=== PATIENT | female | born 1965 | race Caucasian/White ===

== ENCOUNTER 2016-11-24 16:59 | Inpatient (IN) | payer MEDICARE, OTHER ==
[~2016-11-24] VITALS: Ht 152.4 cm; Wt 59.9 kg
[~2016-11-24 16:59] MED LIST: AMOXICILLIN500 MG PO; FLEXERIL PO; NAPROSYN500 MG PO; ULTRAM50 MG PO
--- NOTE | 2016-11-24 17:11 | NUR ---
PT TO ROOM FOR TREATMENT VIA EMS
[2016-11-24] MEDS ORDERED: BENZTROPINE0.5 MG PO (17:43)
[2016-11-24] MEDS ORDERED: HALOPERIDOL5 MG PO (17:43)
[2016-11-24] MEDS ORDERED: THORAZINE50 MG PO (17:45)
--- NOTE | 2016-11-24 17:46 | NUR ---
PT FAMILY STATES SHE JUST GOT [facility], AND WAS STARTEDF ON MEDICATIONS. THINKS SHE MAY HAVE TAKEN MORE OF MEDS THAN SHE SHOULD HAVE. IFAMILY STATES NOTED SHE WASNT GETTING OUT OF BED AND MOVING AROUND SLOWLY YESTERDAY AND TODAY, FAMILY COULD NOT AROUSE HER TO WAKE UP FOSTER EAT, SHE CONTINUES TO SNORE AT THIS TIME. SLEEPING HEAVILY, VITAL SIGNS STABLE.
[2016-11-24 18:22] LABS: HEMATOCRIT 30.5 % (37.0-47.0); HEMOGLOBIN 10.2 g/dl (12.0-16.0); IMMATURE GRANULOCYTES 0.3 % (0.0-1.0); MEAN CELL VOLUME 98.7 fL CALC (80.0-100.0); MEAN CORPUSCULAR HGB CONC 33.4 g/L CALC (32.0-36.0); NEUT# 2.15 thou/uL (2.00-7.15); RED BLOOD COUNT 3.09 mill/uL (4.20-5.60); RED CELL DISTRI WIDTH 18.9 % (11.5-15.5)
[2016-11-24 18:30] LABS: ALBUMIN 2.8 g/dL (3.2-5.0); ALKALINE PHOSPHATASE 161 u/l (38-126); ANION GAP 13 (6-22 (CALC)); BILIRUBIN, TOTAL 2.2 mg/dL (0.0-1.4); BUN 14 mg/dL (7-17); BUN/CREATININE RATIO 26 (12-20 (CALC)); CALCIUM 8.2 mg/dL (8.4-10.2); CARBON DIOXIDE 21 mmol/l (22-30); CHLORIDE 113 mmol/l (95-108); CREATININE 0.5 mg/dL (0.5-1.0); ETHYL ALCOHOL 0 mg/dl (0-30); GFR > 60 ML/MIN (>=60 (CALC)); GFR FOR AFR.AMER. > 60 ML/MIN (>=60 (CALC)); GLUCOSE 98 mg/dL (65-105); POTASSIUM 4.5 mmol/l (3.5-5.1); SGOT/AST 139 u/l (14-36); SGPT/ALT 103 u/l (9-52); SODIUM 143 mmol/l (137-146); TOTAL PROTEIN 8.3 g/dL (6.3-8.2)
[2016-11-24 18:42] LABS: MYOGLOBIN 224 ng/mL (0 - 62)
--- NOTE | 2016-11-24 21:04 | NUR ---
PT NOW WITH IVF RUNNING, SEEN AROUSABLE TO SPEECH BUT IS SOMEWHAT GARBLED IN HER SPEECH. PT HAS BEEN TRANSPORTED AT THIS TIME TO [facility] FOR CT HEAD.
--- NOTE | 2016-11-24 22:12 | NUR ---
RECEIVED REPORT FROM QUYEN PISANO. PT STILL AT [facility] FOR CT
--- NOTE | 2016-11-24 23:00 | NUR ---
PT BACK FROM [facility] WITH NEGATIVE CT BRAIN. PT TO BE ADMITTED PER DR STEPHENS
[2016-11-24 23:32] LABS: URINE BILIRUBIN - DIPSTICK NEGATIVE (NEGATIVE); URINE BLOOD DIPSTICK SMALL (NEGATIVE); URINE CLARITY CLEAR; URINE COLOR YELLOW; URINE GLUCOSE - DIPSTICK NEGATIVE (NEGATIVE); URINE KETONE 15 mg/dL (NEGATIVE); URINE LEUK ESTERASE NEGATIVE (NEGATIVE); URINE NITRITE - DIPSTICK NEGATIVE (Negative); URINE PH 6.5 (4.5-8.0); URINE PROTEIN - DIPSTICK NEGATIVE (NEG-TRACE); URINE SPECIFIC GRAVITY 1.025
[2016-11-24 23:37] LABS: BARBITURATES NEGATIVE (NEGATIVE); COCAINE NEGATIVE (NEGATIVE); METHADONE NEGATIVE (NEGATIVE); TETRAHYDROCANNABIONOL POSITIVE (NEGATIVE); TRICYLIC ANTIDEPRESSANTS NEGATIVE (NEGATIVE)
[2016-11-24 23:38] LABS: OXCYCODONE NEGATIVE (NEGATIVE)
[2016-11-24 23:45] LABS: URINE BACTERIA RARE hpf; URINE SQUAMOUS EPITHELIAL CELL FEW EPI/hpf (0-FEW)
--- NOTE | 2016-11-25 00:09 | NUR ---
REPORT GIVEN TO CHAIM MADISON.
--- NOTE | 2016-11-25 00:30 | NUR ---
Admission Note Report Given to: CHAIM MADISON Transported by: Wheelchair X Stretcher Transported with: X Nurse Transporter X Patent IV O2 X Professor Of Medicine
[2016-11-25 00:40] VITALS: BP 149/91
--- NOTE | 2016-11-25 00:40 | NUR ---
PT TRANSFERED TO FLOOR IN STABLE CONDITION VIA STRETCHER ACCOMPANIED BY QUYEN BARAKAT;PT AMBULATED TO BED WITH UNSTEADY GAIT;PT BECAME AGITATED WITH SEVERAL NURSES IN THE ROOM;PT ORIENTED TO ROOM AND CALL LIGHT SYSTEM AND SAFETY PRECAUTIONS BUT UNABLE TO VERBALIZE UNDERSTANDING;SPEECH IS VERY GARBLED;IV FLUIDS INFUSING TO EMS SITE IN LAC WELL;TELE MONITOR IN PLACE;RESPIRATIONS EVEN AND UNLABORED ON RA;ASSESSMENT COMPLETED;SKIN INTACT;PUPILS PIN POINT;SLIGHT TREMORS OF THE EXTREMITIES NOTED;PT UNABLE TO SIT STILL;CONTACT PRECAUTIONS PUT INTO PLACE DUE TO SUSPECTED PINK EYE TREATED BY ER MD;BS OF 130 OBTAINED; BED ALARM ON;FALL PRECAUTIONS IN PLACE;BED IN LOWEST POSITION WITH CALL LIGHT WITHIN REACH;WILL CONTINUE TO MONITOR
--- NOTE | 2016-11-25 00:46 | NUR ---
INITIAL TELE READING OF SR 95
--- NOTE | 2016-11-25 01:20 | NUR ---
PT CONSTANTLY GETTING OUT OF BED;PT VERY RESTLESS;PT EDUCATED ON FALL PRECAUTIONS BUT NOT UNDERSTANDING;PT SETTLED BACK INTO BED;WRITTER CURRENTLY SITTING AT BEDSIDE;BED ALARM ON WITH CONTACT PRECAUTIONS IN PLACE;WILL CONTINUE TO MONITOR
--- NOTE | 2016-11-25 02:41 | NUR ---
NOTIFED OF PTS ADMISSION AND LACK OF ORDERS;ORDER FOR NS @ 70 OBTAINED;ALL HOME MEDICATIONS TO BE ON HOLD AT THIS TIME;WILL CONTINUE TO MONITOR
[2016-11-25 03:35] VITALS: BP 138/81
--- NOTE | 2016-11-25 04:15 | NUR ---
PT SITTING AT BEDSIDE ALONE USING PROFANITY TOWARDS HERSELF;PT SET OFF BED ALARM AND AMBULATED WITH AN UNSTEADY GAIT TO THE WINDOW PT STATES WITH GARBLED SPEECH "THESE LORENZO ARE FUNNY AND IM TIRED OF YOU TELLING ME WHAT TO DO";PT ENCOURAGED TO GET BACK INTO BED;ADDITIONAL BLANKETS PROVIDED FOR COMFORT;BED ALARM ON;BED IN LOWEST POSITION WITH CALL LIGHT IN REACH;WILL CONTINUE TO MONITOR
--- NOTE | 2016-11-25 07:00 | NUR ---
RECEIVED BEDSIDE REPORT FROM GRICELDA RUCKER. PT RESTING IN BED WITH EYES CLOSED, AWAKENS EASILY. RESPS EVEN AND UNLABORED ON ROOM AIR, TELE MONITOR IN PLACE. VOICES NO C/O AT THIS TIME. #20 LAC INFUSING WITHOUT DIFFICULTY, SITE APPEARS HEALTHY. PLAN OF CARE DISCUSSED. SAFETY PRECAUTIONS REINFORCED. BED ALARM ON FOR SAFETY. BED IN LOWEST POSITION WITH WHEELS LOCKED. CALL LIGHT WIHTIN REACH. WILL CONTINUE TO MONITOR.
--- NOTE | 2016-11-25 07:30 | NUR ---
PT OUT OF BED AMBULATING IN ROOM. #20 LAC FOUND DISLODGED. CATH TIP INTACT. PT ENCOURAGED TO REMIAN IN BED FOR SAFETY. PO FLUIDS OFFERED. WILL CONTINUE TO MONITOR.
--- NOTE | 2016-11-25 10:00 | NUR ---
PT AMBULATING IN HALLWAY AND ROOM. ENCOURAGED PT TO CALL FOR ASSIST BEFORE GETTING OUT OF BED. REMOVED TELE MONITOR, REFUSED TO HAVE REPLACED. DENIES PAIN OR DISCOMFORT. ASSISTED BACK TO BED. BED ALARM ON FOR SAFETY. CALL LIGHT WITHIN REACH.
--- NOTE | 2016-11-25 13:00 | NUR ---
IN HIGH FOWLERS POSITION, FAMILY AT BEDSIDE. #22 RFA INFUSING WITHIUT DIFFICULTY, SITE APPEARS HEALTHY. VOICES NO C/O AT THIS TIME. CALL LIGHT WITHIN REACH
--- NOTE | 2016-11-25 13:18 | NUR ---
DR MALCOLM IN TO SEE PT AND FAMILY, NEW ORDERS RECEIVED.
[2016-11-25 14:00] VITALS: BP 130/79
[2016-11-25 16:00] VITALS: BP 146/64
--- NOTE | 2016-11-25 16:00 | NUR ---
PT AMBULATING IN ROOM. REFUSED TO STAY IN BED. PO FLUIDS AND SNACK OFFERED. CALL LIGHT WITHIN REACH.
[2016-11-25] MEDS ORDERED: PROTONIX40 M2 PO (17:16)
[2016-11-25] MEDS ORDERED: VALACYCLOVIR H500 MG PO (17:17)
[2016-11-25] MEDS ORDERED: ABILIFY5 MG PO (17:17)
[2016-11-25] MEDS ORDERED: ALDACTONE25 MG PO (17:17)
[2016-11-25] MEDS ORDERED: LASIX 40 MG TAB40 MG PO (17:17)
[2016-11-25 18:58] VITALS: BP 124/90
--- NOTE | 2016-11-25 20:00 | NUR ---
PT WALKING THROUGH BE TO NURSES STATION WITH STEADY GAIT;PT REQUESTS TO "ORDER" HER MEDICATION;PT ASSISTED BACK TO ROOM WITH WRITTER;ASSESSMENT COMPLETED;IV SITE TO RT FOREARM FLUSHED AND PATENT;PT ORIENTED TO PERSON;PT REPOSITIONED IN BED;PT PROVIDED WATER AND PUDDING;PT DENIES ANY OTHER NEEDS AT THIS TIME;BED IN LOWEST POSITION WITH CALL LIGHT IN REACH;WILL CONTINUE TO MONITOR
--- NOTE | 2016-11-26 00:15 | NUR ---
PT AMBULATING THROUGH BE;PT ENCOURAGED TO WALK BACK TO ROOM;PT REPOSITIONED INTO BED;SNACK PROVIDED;PT DENIES ANY OTHER NEEDS;BED IN LOWEST POSITION WITH CALL LIGHT IN REACH;WILL CONTINUE TO MONITOR
[2016-11-26 03:49] VITALS: BP 122/72
--- NOTE | 2016-11-26 05:00 | NUR ---
PT WALKING AROUND ROOM;PT REQUESTS BED BATH;PT DENIES ANY PAIN OR DISCOMFORTS;RESPIRATIONS EVEN AND UNLABORED ON RA;ADDITONAL BLANKETS PROVIDED;PT DENIES ANY OTHER NEEDS AT THIS TIME;BED IN LOWEST POSITION WITH CALL LIGHT IN REACH;WILL CONTINUE TO MONITOR
--- NOTE | 2016-11-26 07:00 | NUR ---
RECEIVED BEDSIDE REPORT FROM GRICELDA RUCKER. PT AMBULATING IN ROOM "CLEANING HOUSE." RESPS EVEN AND UNLABORED ON ROOM AIR. ORIENTED TO SELF AND PLACE. VOICES NO C/O. PLAN OF CARE DISCUSSED. SAFETY PRECAUTIONS REINFORCED. BED IN LOWEST POSITION WITH WHEELS LOCKED. CALL LIGHT WITHIN REACH. WILL CONTINUE TO MONITOR.
[2016-11-26 07:24] LABS: HEMATOCRIT 29.7 % (37.0-47.0); HEMOGLOBIN 9.9 g/dl (12.0-16.0); IMMATURE GRANULOCYTES 0.5 % (0.0-1.0); MEAN CELL VOLUME 98.7 fL CALC (80.0-100.0); MEAN CORPUSCULAR HGB 32.9 pG CALC (26.0-32.0); MEAN CORPUSCULAR HGB CONC 33.3 g/L CALC (32.0-36.0); NEUT# 2.03 thou/uL (2.00-7.15); RED BLOOD COUNT 3.01 mill/uL (4.20-5.60); RED CELL DISTRI WIDTH 18.6 % (11.5-15.5)
[2016-11-26 08:04] LABS: ANION GAP 11 (6-22 (CALC)); BUN 11 mg/dL (7-17); BUN/CREATININE RATIO 18 (12-20 (CALC)); CALCIUM 8.1 mg/dL (8.4-10.2); CARBON DIOXIDE 23 mmol/l (22-30); CHLORIDE 109 mmol/l (95-108); CREATININE 0.6 mg/dL (0.5-1.0); GFR > 60 ML/MIN (>=60 (CALC)); GFR FOR AFR.AMER. > 60 ML/MIN (>=60 (CALC)); GLUCOSE 99 mg/dL (65-105); POTASSIUM 4.4 mmol/l (3.5-5.1); SODIUM 138 mmol/l (137-146)
[2016-11-26 08:58] VITALS: BP 133/78
--- NOTE | 2016-11-26 12:00 | NUR ---
IN HIGH FOWLERS EATING LUNCH. FAMILY AT BEDSIDE. RESPS EVEN AND UNLABORED ON ROOM AIR. DENIES PAIN OR DISCOMFORT. CALL LIGHT WITHIN REACH. WILL CONTINUE TO MONITOR.
--- NOTE | 2016-11-26 12:45 | NUR ---
DR MALCOLM IN TO SEE PT, NEW ORDERS RECEIVED.
[2016-11-26] MEDS ORDERED: KRISTALOSE20 GM PO (13:32)
--- NOTE | 2016-11-26 17:16 | NUR ---
Discharge instructions given. Patient verbalizes understanding of same. Discharged in stable condition via Wheelchair to Home with family. All belongings sent with pt.
== END 2016-11-26 17:30 | disposition home or self-care (01) | DRG 441 ==
LOC: ENPENDDIS → ED 16:59 → ED-I 22:59 → ED 23:50 → MS2 23:51
PROVIDERS: Emergency Medicine; Internal Medicine; ADMIT Internal Medicine; ATTEND Internal Medicine
DX: K72.90 Hepatic failure, unspecified without coma (principal); D61.811 Other drug-induced pancytopenia; K70.10 Alcoholic hepatitis without ascites; B19.20 Unspecified viral hepatitis C without hepatic coma; F20.9 Schizophrenia, unspecified; F17.210 Nicotine dependence, cigarettes, uncomplicated; M19.90 Unspecified osteoarthritis, unspecified site; I10 Essential (primary) hypertension; F31.9 Bipolar disorder, unspecified; F10.20 Alcohol dependence, uncomplicated; K74.60 Unspecified cirrhosis of liver; F12.10 Cannabis abuse, uncomplicated; T50.905A Adverse effect of unspecified drugs, medicaments and biological substances, initial encounter; Z79.899 Other long term (current) drug therapy; Z91.14 Patient's other noncompliance with medication regimen

== ENCOUNTER 2016-12-14 22:54 | Emergency (ER) | payer MEDICARE, OTHER ==
[~2016-12-14] VITALS: Ht 152.4 cm; Wt 65.4 kg
[~2016-12-14 22:54] MED LIST changes: +ABILIFY5 MG PO; +ALDACTONE25 MG PO; +BENZTROPINE0.5 MG PO; +HALOPERIDOL5 MG PO; +KRISTALOSE20 GM PO; +LASIX 40 MG TAB40 MG PO; +PROTONIX40 M2 PO; +THORAZINE50 MG PO; +VALACYCLOVIR H500 MG PO
[2016-12-15 02:48] LABS: URINE BLOOD DIPSTICK SMALL (NEGATIVE); URINE CLARITY CLEAR; URINE COLOR YELLOW; URINE GLUCOSE - DIPSTICK NEGATIVE (NEGATIVE); URINE KETONE NEGATIVE (NEGATIVE); URINE LEUK ESTERASE NEGATIVE (NEGATIVE); URINE NITRITE - DIPSTICK NEGATIVE (Negative); URINE PROTEIN - DIPSTICK NEGATIVE (NEG-TRACE); URINE UROBILINOGEN - DIPSTICK 0.2 E.U./dL (0.2)
[2016-12-15 02:51] LABS: URINE BILIRUBIN - DIPSTICK SMALL (NEGATIVE)
[2016-12-15 02:55] LABS: BARBITURATES NEGATIVE (NEGATIVE); COCAINE NEGATIVE (NEGATIVE); METHADONE NEGATIVE (NEGATIVE); OXCYCODONE NEGATIVE (NEGATIVE); TETRAHYDROCANNABIONOL POSITIVE (NEGATIVE); TRICYLIC ANTIDEPRESSANTS NEGATIVE (NEGATIVE)
[2016-12-15 02:57] LABS: HEMATOCRIT 24.8 % (37.0-47.0); HEMOGLOBIN 8.4 g/dl (12.0-16.0); MEAN CELL VOLUME 99.2 fL CALC (80.0-100.0); MEAN CORPUSCULAR HGB 33.6 pG CALC (26.0-32.0); MEAN CORPUSCULAR HGB CONC 33.9 g/L CALC (32.0-36.0); NEUT# 2.45 thou/uL (2.00-7.15); RED BLOOD COUNT 2.5 mill/uL (4.20-5.60); RED CELL DISTRI WIDTH 18.3 % (11.5-15.5)
[2016-12-15 02:59] LABS: URINE BACTERIA FEW hpf; URINE SQUAMOUS EPITHELIAL CELL FEW EPI/hpf (0-FEW)
[2016-12-15 03:13] LABS: ALBUMIN 2.2 g/dL (3.2-5.0); ALKALINE PHOSPHATASE 110 u/l (38-126); AMYLASE 141 u/l (30-110); ANION GAP 7 (6-22 (CALC)); BILIRUBIN, TOTAL 2.3 mg/dL (0.0-1.4); BUN 9 mg/dL (7-17); BUN/CREATININE RATIO 16 (12-20 (CALC)); CALCIUM 7.8 mg/dL (8.4-10.2); CARBON DIOXIDE 25 mmol/l (22-30); CHLORIDE 109 mmol/l (95-108); CREATININE 0.5 mg/dL (0.5-1.0); GFR > 60 ML/MIN (>=60 (CALC)); GFR FOR AFR.AMER. > 60 ML/MIN (>=60 (CALC)); GLUCOSE 70 mg/dL (65-105); LIPASE 475 u/l (23-300); POTASSIUM 4.1 mmol/l (3.5-5.1); SGOT/AST 112 u/l (14-36); SGPT/ALT 79 u/l (9-52); SODIUM 137 mmol/l (137-146); TOTAL PROTEIN 6.7 g/dL (6.3-8.2)
[2016-12-15 05:38] VITALS: BP 113/67
== END 2016-12-15 05:38 | disposition home or self-care (01) ==
LOC: ED 22:54
DX: K59.00 Constipation, unspecified (principal); G89.29 Other chronic pain; R10.33 Periumbilical pain; R10.13 Epigastric pain; F12.10 Cannabis abuse, uncomplicated

== ENCOUNTER 2017-03-08 13:51 | Emergency (ER) | payer MEDICARE, OTHER ==
[~2017-03-08] VITALS: Ht 152.4 cm; Wt 63.0 kg
[2017-03-08 16:08] LABS: HEMATOCRIT 32.8 % (37.0-47.0); HEMOGLOBIN 11.3 g/dl (12.0-16.0); IMMATURE GRANULOCYTES 0.7 % (0.0-1.0); MEAN CELL VOLUME 102.5 fL CALC (80.0-100.0); MEAN CORPUSCULAR HGB 35.3 pG CALC (26.0-32.0); MEAN CORPUSCULAR HGB CONC 34.5 g/L CALC (32.0-36.0); NEUT# 2.42 thou/uL (2.00-7.15); RED BLOOD COUNT 3.2 mill/uL (4.20-5.60); RED CELL DISTRI WIDTH 17.9 % (11.5-15.5)
[2017-03-08 16:23] LABS: ALBUMIN 2.5 g/dL (3.2-5.0); ALKALINE PHOSPHATASE 133 u/l (38-126); AMYLASE 139 u/l (30-110); ANION GAP 11 (6-22 (CALC)); BILIRUBIN, TOTAL 3.1 mg/dL (0.0-1.4); BUN 8 mg/dL (7-17); BUN/CREATININE RATIO 14 (12-20 (CALC)); CARBON DIOXIDE 22 mmol/l (22-30); CHLORIDE 113 mmol/l (95-108); CREATININE 0.6 mg/dL (0.5-1.0); GFR > 60 ML/MIN (>=60 (CALC)); GFR FOR AFR.AMER. > 60 ML/MIN (>=60 (CALC)); GLUCOSE 66 mg/dL (65-105); LIPASE 344 u/l (23-300); POTASSIUM 4.4 mmol/l (3.5-5.1); SGOT/AST 276 u/l (14-36); SGPT/ALT 153 u/l (9-52); SODIUM 142 mmol/l (137-146); TOTAL PROTEIN 7.7 g/dL (6.3-8.2)
[2017-03-08 16:35] LABS: MYOGLOBIN 28 ng/mL (0 - 62)
[2017-03-08] MEDS ORDERED: PREVACID30 M3 PO (19:19)
[2017-03-08] MEDS ORDERED: ZOFRAN ODT4 MG PO (19:19)
[2017-03-08 20:15] VITALS: BP 99/54
== END 2017-03-08 20:15 | disposition home or self-care (01) ==
LOC: ED 13:51
PROVIDERS: Emergency Medicine
DX: R10.13 Epigastric pain (principal); K74.60 Unspecified cirrhosis of liver; I10 Essential (primary) hypertension; M19.90 Unspecified osteoarthritis, unspecified site; B19.20 Unspecified viral hepatitis C without hepatic coma; F20.9 Schizophrenia, unspecified; R94.31 Abnormal electrocardiogram [ECG] [EKG]
CPT/HCPCS: S0164

== ENCOUNTER 2017-04-14 21:23 | Inpatient (IN) | payer MEDICARE, OTHER ==
[~2017-04-14] VITALS: Ht 152.4 cm; Wt 67.0 kg
[~2017-04-14 21:23] MED LIST changes: +PREVACID30 M3 PO; +ZOFRAN ODT4 MG PO
--- NOTE | 2017-04-14 21:31 | NUR ---
STATES SHE RAN OUT OF HER ABILIFY SO SHE STOPPED TAKING ALL OF HER MEDICATION
--- NOTE | 2017-04-14 21:32 | NUR ---
TO TX ROOM VIA W/C
[2017-04-14 22:22] LABS: HEMATOCRIT 27.7 % (37.0-47.0); HEMOGLOBIN 9.4 g/dl (12.0-16.0); IMMATURE GRANULOCYTES 1.1 % (0.0-1.0); MEAN CELL VOLUME 104.5 fL CALC (80.0-100.0); MEAN CORPUSCULAR HGB 35.5 pG CALC (26.0-32.0); MEAN CORPUSCULAR HGB CONC 33.9 g/L CALC (32.0-36.0); NEUT# 3.36 thou/uL (2.00-7.15); RED BLOOD COUNT 2.65 mill/uL (4.20-5.60); RED CELL DISTRI WIDTH 17.1 % (11.5-15.5)
--- NOTE | 2017-04-14 22:30 | NUR ---
PT RESTING ON THE STRETCHER AWAITING LAB RESULTS. WARM BLANKET PROVIDED FOR COMFORT
[2017-04-14 22:35] LABS: ALBUMIN 2.3 g/dL (3.2-5.0); ALKALINE PHOSPHATASE 111 u/l (38-126); AMYLASE 345 u/l (30-110); ANION GAP 10 (6-22 (CALC)); BILIRUBIN, TOTAL 5.6 mg/dL (0.0-1.4); BUN 9 mg/dL (7-17); BUN/CREATININE RATIO 15 (12-20 (CALC)); CALCIUM 7.6 mg/dL (8.4-10.2); CARBON DIOXIDE 22 mmol/l (22-30); CHLORIDE 107 mmol/l (95-108); CREATININE 0.6 mg/dL (0.5-1.0); GFR > 60 ML/MIN (>=60 (CALC)); GFR FOR AFR.AMER. > 60 ML/MIN (>=60 (CALC)); GLUCOSE 91 mg/dL (65-105); LIPASE 254 u/l (23-300); POTASSIUM 3.6 mmol/l (3.5-5.1); SGOT/AST 145 u/l (14-36); SGPT/ALT 118 u/l (9-52); SODIUM 135 mmol/l (137-146); TOTAL PROTEIN 7.2 g/dL (6.3-8.2)
--- NOTE | 2017-04-14 23:42 | NUR ---
A/O F DENIES PAIN OR DISCOMFORT MILD REDNESS AROUND BOTH EYES.CLEAR RONNA;AT BREATH SOUNDS.ABD SOFT NONTENDER ACRTIVE SOUNDS.
--- NOTE | 2017-04-14 23:51 | NUR ---
PT UP TO RR AMB WITHOUT DIFF.OR PAIN
--- NOTE | 2017-04-15 01:30 | NUR ---
PT IS ANXIOUS TO KNOW THE MD'S POC I ADVUSED DR Sherman OF SAME PT IS W/P/D A/OX3 IN NO DISTRESS
--- NOTE | 2017-04-15 02:38 | NUR ---
PT GIVEN GINGERALE/TURKEY SANDWICH
--- NOTE | 2017-04-15 03:14 | NUR ---
PHONE REPORT TO NURSE LEONA ON MS2
--- NOTE | 2017-04-15 03:45 | NUR ---
PATIENT ARRIVED TO THE FLOOR VIA WHEELCHAIR ACCOMOPANIED BY ER STAFF. PATIENT WEIGHED AND SETTLED TO BED. ORIENT PATIENT TO ROOM CALL SYSTEM. BED IN LOW POSITION, CALL LIGHT IN REACH.
--- NOTE | 2017-04-15 03:45 | NUR ---
TO FLOOR VIA WC/RN ESCORT
[2017-04-15 03:50] VITALS: BP 118/80
--- NOTE | 2017-04-15 07:05 | NUR ---
PT IN SUPINE POSITION RESTING WITH EYES CLOSED; AROUSED EASILY TO VERBAL STIMULI; NO COMPLAINTS VOICED; CALL FALK WITHIN REACH; WILL CONTINUE TO MONITOR.
[2017-04-15 07:24] VITALS: BP 104/63
--- NOTE | 2017-04-15 11:50 | NUR ---
PT MEDICATED FOR C/O FACIAL PAIN 04/22; CALL FALK WITHIN REACH; WILL CONTINUE TO MONITOR.
[2017-04-15 13:22] LABS: INTERNATIONAL NORMALIZED RATIO 1.5 RATIO (0.7-1.3); PROTHROMBIN TIME 16.7 SECONDS (9.0-12.5)
--- NOTE | 2017-04-15 15:26 | NUR ---
PT AMBULATORY IN ROOM; NO COMPLAINTS VOICED; MARKED DECREASE SWELLING TO EYES; CALL FALK WITHIN REACH; WILL CONTINUE TO MONITOR.
[2017-04-15 16:03] VITALS: BP 98/60
--- NOTE | 2017-04-15 19:33 | NUR ---
BEDSIDE REPORT RECEIVED FROM QUYEN LIGHT. PT SITTING UP IN BED EATING DINNER. C/O MILD GENERAL PAIN AT THIST GARTH AND REQUESTS ANALGESIC WITH SCHEDULED MEDICATIONS. RESPIRATIONS EVEN AND UNLABORED. PLAN OF CARE DISCUSSED. PT ENCOURAGED TO VERBALIZE CONCERNS STATES UNDERSTANDING. SAFETY MEASURES IN PLACE. CALL LIGHT WITHIN REACH.
[2017-04-15 20:30] VITALS: BP 104/62
[2017-04-15 21:34] LABS: URINE BILIRUBIN - DIPSTICK SMALL (NEGATIVE); URINE BLOOD DIPSTICK TRACE-INTACT (NEGATIVE); URINE CLARITY CLEAR; URINE COLOR YELLOW; URINE GLUCOSE - DIPSTICK NEGATIVE (NEGATIVE); URINE KETONE NEGATIVE (NEGATIVE); URINE LEUK ESTERASE NEGATIVE (NEGATIVE); URINE NITRITE - DIPSTICK NEGATIVE (Negative); URINE PROTEIN - DIPSTICK NEGATIVE (NEG-TRACE)
[2017-04-15 21:38] LABS: BARBITURATES NEGATIVE (NEGATIVE); COCAINE NEGATIVE (NEGATIVE); METHADONE NEGATIVE (NEGATIVE); OXCYCODONE NEGATIVE (NEGATIVE); TETRAHYDROCANNABIONOL POSITIVE (NEGATIVE); TRICYLIC ANTIDEPRESSANTS NEGATIVE (NEGATIVE)
--- NOTE | 2017-04-16 | NUR ---
PT AWAKE AND AMBULATING INDEPENDENTLY TO BATHROOM. REQUESTING SNACKS FREQUENTLY. GINGERALE AND ICE CREAM GIVEN. DENIES PAIN AND RESPIRATIONS EVEN AND UNLABORED. IV SITE APPEARS HEALTHY. ABT INFUSED WITHOUT DIFFICULTY. NO CHAGES IN ASSESSMENT NOTED. SAFETY MEASURES IN PLACE. CALL LIGHT WITHIN REACH.
--- NOTE | 2017-04-16 04:22 | NUR ---
PT ASLEEP AT THIS TIME. NO SIGNS OF DISTRESS NOTED. RESPIRATIONS EVEN AND UNLABORED. NO CHANGES IN ASSESSMENT NOTED. CONDITION IS STABLE. SAFETY MEASURES REMAIN IN PLACE. CALL LIGHT WITHIN REACH.
[2017-04-16 06:21] VITALS: BP 113/56
[2017-04-16] MEDS ORDERED: LASIX 40 MG40 MG/TAB PO (07:45)
[2017-04-16] MEDS ORDERED: BENZTROPINE0.5 MG PO (07:45)
[2017-04-16] MEDS ORDERED: HALDOL5 M1 PO (07:45)
[2017-04-16] MEDS ORDERED: TAB-A-VITE W/1 COMBO PO (07:45)
[2017-04-16] MEDS ORDERED: ALDACTONE25 MG PO (07:45)
[2017-04-16] MEDS ORDERED: FOLIC ACID1 M1 PO (07:45)
[2017-04-16] MEDS ORDERED: AUGMENTIN875TAB PO (07:45)
[2017-04-16 08:01] VITALS: BP 116/66
[2017-04-16 08:19] LABS: HEMATOCRIT 33.2 % (37.0-47.0); HEMOGLOBIN 11.2 g/dl (12.0-16.0); MEAN CELL VOLUME 105.4 fL CALC (80.0-100.0); MEAN CORPUSCULAR HGB 35.6 pG CALC (26.0-32.0); MEAN CORPUSCULAR HGB CONC 33.7 g/L CALC (32.0-36.0); RED BLOOD COUNT 3.15 mill/uL (4.20-5.60); RED CELL DISTRI WIDTH 16.9 % (11.5-15.5)
[2017-04-16 08:26] LABS: ALBUMIN 2.9 g/dL (3.2-5.0); ALKALINE PHOSPHATASE 143 u/l (38-126); ANION GAP 12 (6-22 (CALC)); BILIRUBIN, TOTAL 4.2 mg/dL (0.0-1.4); BUN 8 mg/dL (7-17); BUN/CREATININE RATIO 15 (12-20 (CALC)); CARBON DIOXIDE 23 mmol/l (22-30); CHLORIDE 109 mmol/l (95-108); CREATININE 0.5 mg/dL (0.5-1.0); GFR > 60 ML/MIN (>=60 (CALC)); GFR FOR AFR.AMER. > 60 ML/MIN (>=60 (CALC)); GLUCOSE 96 mg/dL (65-105); POTASSIUM 3.7 mmol/l (3.5-5.1); SGOT/AST 140 u/l (14-36); SGPT/ALT 120 u/l (9-52); SODIUM 140 mmol/l (137-146); TOTAL PROTEIN 8.3 g/dL (6.3-8.2)
[2017-04-16 08:32] LABS: INTERNATIONAL NORMALIZED RATIO 1.5 RATIO (0.7-1.3); PROTHROMBIN TIME 16.2 SECONDS (9.0-12.5)
--- NOTE | 2017-04-16 11:36 | NUR ---
Discharge instructions given. Patient verbalizes understanding of same. Discharged in stable condition via Wheelchair to Home with *Other. All belongings sent with pt.
== END 2017-04-16 11:35 | disposition home or self-care (01) | DRG 603 ==
LOC: ED 21:23 → ED-I 04-15 02:28 → ED 04-15 02:49 → MS2 04-15 02:50
PROVIDERS: Emergency Medicine; Internal Medicine; Nurse Practitioner Family; ADMIT Internal Medicine; ATTEND Internal Medicine
DX: L03.213 Periorbital cellulitis (principal); D61.818 Other pancytopenia; K70.31 Alcoholic cirrhosis of liver with ascites; L02.01 Cutaneous abscess of face; B19.20 Unspecified viral hepatitis C without hepatic coma; I10 Essential (primary) hypertension; M19.90 Unspecified osteoarthritis, unspecified site; F31.9 Bipolar disorder, unspecified; F20.9 Schizophrenia, unspecified; F17.210 Nicotine dependence, cigarettes, uncomplicated; H01.006 Unspecified blepharitis left eye, unspecified eyelid; H01.003 Unspecified blepharitis right eye, unspecified eyelid; F10.21 Alcohol dependence, in remission; H66.90 Otitis media, unspecified, unspecified ear; K70.11 Alcoholic hepatitis with ascites; S00.261A Insect bite (nonvenomous) of right eyelid and periocular area, initial encounter; W57.XXXA Bitten or stung by nonvenomous insect and other nonvenomous arthropods, initial encounter; Y92.009 Unspecified place in unspecified non-institutional (private) residence as the place of occurrence of the external cause; T17.1XXA Foreign body in nostril, initial encounter; X58.XXXA Exposure to other specified factors, initial encounter; Z87.898 Personal history of other specified conditions; Z91.14 Patient's other noncompliance with medication regimen

== ENCOUNTER 2017-05-19 21:13 | Emergency (ER) | payer MEDICARE, OTHER ==
[~2017-05-19] VITALS: Ht 152.4 cm; Wt 59.1 kg
[~2017-05-19 21:13] MED LIST changes: +AUGMENTIN875TAB PO; +FOLIC ACID1 M1 PO; +HALDOL5 M1 PO; +LASIX 40 MG40 MG/TAB PO; +TAB-A-VITE W/1 COMBO PO
[2017-05-19] MEDS ORDERED: ULTRAM50 M1 PO ×2 (21:27→23:23)
[2017-05-19] MEDS ORDERED: FLEXERIL PO (23:23)
[2017-05-19 23:30] VITALS: BP 112/70
== END 2017-05-19 23:35 | disposition home or self-care (01) ==
LOC: ED 21:13
DX: S39.012A Strain of muscle, fascia and tendon of lower back, initial encounter (principal); M54.40 Lumbago with sciatica, unspecified side